=== PATIENT | female | born 1930 | race Caucasian/White ===

== ENCOUNTER 2017-10-18 01:42 | Inpatient (IN) | payer MEDICARE, MEDICAID ==
[2017-10-18] MEDS ORDERED: Morphine INJ* 2 MG/ML 1 ML SYRINGE (TWO MG - NEW SYRINGE VERSION) IV PRN (01:48)
[2017-10-18] MEDS ORDERED: Ondansetron INJ* 2 MG/ML VIAL IV PRN (01:48)
[2017-10-18] MEDS ORDERED: Acetaminophen TAB* 325 MG PO PRN (01:48)
[2017-10-18] MEDS ORDERED: oxyCODONE/Acetamin 5/325 MG* TAB PO PRN (01:48)
[2017-10-18] MEDS ORDERED: NS 0.9% 1000 ML* 1,000 ML IV ONE (02:05)
[2017-10-18] MEDS ORDERED: NS 0.9% 1000 ML* 1,000 ML IV SCH (02:15)
[2017-10-18] MEDS: metroNIDAZOLE IV 500 MG/100ML* 500 MG/100 ML BAG IVPB SCH ×2 (03:49→15:16)
[2017-10-18] MEDS ORDERED: Levofloxacin 500 MG IVPREMIX(* 500 MG/100 ML BAG IVPB SCH (05:00)
--- NOTE | 2017-10-18 05:57 | HP ---
CC: Dr. Gagan Meléndez * HISTORY AND PHYSICAL: DATE OF ADMISSION: 10/18/17 TIME OF MY EVALUATION: 1:30 a.m. PRIMARY CARE PROVIDER: Dr. Gagan Meléndez. Transfer from [facility]. CHIEF COMPLAINT: Known infected right lobe hepatic cyst requesting IR ( Interventional Radiology) drainage [place] [facility] HISTORY OF PRESENT ILLNESS: Please see the transfer note by Dr. Kobe Hassan. In brief, Ms. Cruz is an elderly SNF resident who resides at [facility] who became lethargic, weak, tired and confused and suffered from fevers of unknown origin. The patient was very different than her baseline. The patient was on IV antibiotics at [facility]. The patient ultimately had a CT scan of her abdomen (the machine was originally broken) and that showed an enlarged hepatic cyst worse than previously understood and likely infected and likely the cause of her decline and acute illness. For this reason and for the availability of IR services, the patient was requested to be transferred to [facility] and I accepted. The patient received doses of IV Flagyl in addition to her IV fluoroquinolone before transfer. She was hemodynamically stable. The patient herself does not give any history. She has got severe dementia, however, the patient is more poorly responsive than normal and the staff who know her feel she is very different than her usual, talkative interactive self. PAST MEDICAL HISTORY: 1. Infected hepatic cyst as above. 2. Dementia. 3. Chronic back pain. 4. Diabetes. 5. Hyperlipidemia. 6. Hypothyroidism. 7. Arthritis. 8. Morbid obesity. 9. Anxiety. 10. Behavioral problems. 11. Radiculopathy 12. Recurrent urinary tract infections. TRANSFER MEDICATION LIST: 1. Xanax 0.5 mg by mouth in the morning. 2. Pravachol 80 mg by mouth daily. 3. Neurontin 250 mg by mouth twice daily. 4. Mobic 7.5 mg by mouth daily. 5. Metformin 500 mg by mouth daily. 6. Levothyroxine 25 mcg by mouth daily. 7. Ferrous sulfate elixir daily. 8. Vitamin B12 1000 mcg by mouth daily. 9. Colace 100 mg by mouth daily. 10. Vitamin C 500 mg by mouth daily. 11. Aspirin 81 mg by mouth daily. ALLERGIES: PENNICILLIN - Unknown reaction. FAMILY HISTORY: Reviewed but noncontributory based on the current presentation. SOCIAL HISTORY: Nonsmoker, nondrinker. The patient lives at [facility]. The patient's daughter who is her surrogate decision maker and her name is Jodie Crow. PHYSICAL EXAMINATION ON ADMISSION GENERAL: Elderly woman demented, no history obtained. She is sleeping, arouses and then goes back to sleep. VITAL SIGNS: Temperature afebrile 98 degrees Fahrenheit, blood pressure 130s over 80s, respirations 12 and regular, oxygen saturation 96% on room air. LUNGS: Clear anteriorly. HEART: Regular rate and rhythm. ABDOMEN: Soft, nontender. The right upper quadrant specifically is tender to deep palpation consistent with her hepatic cyst. EXTREMITIES: Significant for right leg brace for her spinal stenosis treatment and stabilization. SKIN: Dry and intact. NEUROLOGIC: Unable to assess secondary to dementia. PSYCH: Unable to assess secondary to dementia. LYMPH: No adenopathy. ADMISSION DATA: Labs pending at [facility]. However labs from 10/17/17 at [facility] include: White blood cell count elevated at 14.97, hemoglobin 9.4, platelets 310, creatinine 1.5, BUN 45, anion gap 15 (elevated), sodium mildly high at 148, potassium 3.9, bicarb 28, calcium 8.9, BUN to creatinine ratio elevated at 30. In terms of her white blood cell count trend, it has been consistently in the mid teens by review, she has a left shift with as high as 92% neutrophils on . She has been progressively more hypernatremic. IMPRESSION: Ms. Cruz is an 87-year-old female with an acute illness secondary to an infected hepatic cyst. The CT image is sent on CD from [facility]. The patient is on IV antibiotics and the plan tentatively is for an IR drainage on 10/18/17. This will be arranged. I will keep the patient NPO for now. We will hold even prophylactic doses of anticoagulants before the procedure. The patient will receive Tylenol as needed for intermittent fevers, run fluids gently considering her emerging hypernatremia. Medication reconciliation will be performed and outpatient medications will be continued as per her usual custom. The patient will be transferred back to [facility] after this acute hospitalization and following the drainage of her hepatic cyst. Surrogate decision maker is patient's daughter. CODE: DNR. Following the procedure, she could have a diabetic diet (will be NPO before the IR procedure) TIME SPENT: Total time taken to admit Ms. Cruz was 70 minutes, greater than half that time was spent going over the admission history and physical examination at the bedside and communicating with the patient's daughter. [id number]/[facility] #: [id number] MIKE
[2017-10-18] MEDS: Heparin VIAL(*) 5000 UNITS/ML VIAL (FIVE THOUSAND) SUBCUT SCH ×3 (06:11→21:09)
[2017-10-18 06:38] LABS: ABS Basophils 0 10^3/ul (0-0.2); ABS Eosinophils 0.1 10^3/ul (0-0.6); ABS Lymphocytes 0.8 10^3/ul (1.0-4.8); ABS Monocytes 1.4 10^3/ul (0-0.8); ABS Neutrophils 14.2 10^3/ul (1.5-7.7); ABS Nucleated RBC 0 10^3/ul; Eosinophil % 0.4 % (0-6); Hematocrit 27 % (35-47); Hemoglobin 8.5 g/dl (12.0-16.0); Lymphocyte % 5.1 % (25-47); Mean Corpuscular HGB Conc 32 g/dl (31-36); Mean Corpuscular Hemoglobin 32 pg (27-31); Mean Corpuscular Volume 101 fL (80-97); Mean Platelet Volume 8 um3 (7.4-10.4); Nucleated Red Blood Cells % 0; Platelet Count 304 10^3/ul (150-450); Red Blood Count 2.65 10^6/ul (4.0-5.4); Red Cell Distribution Width 16 % (10.5-15); White Blood Count 16.5 10^3/ul (3.5-10.8)
[2017-10-18 06:42] LABS: INR 1.29 (0.77-1.02)
[2017-10-18] MEDS: Levothyroxine TAB* 25 MCG TAB PO SCH (06:43)
[2017-10-18 06:52] LABS: EGFR Non-African American 42.6 (>60)
--- NOTE | 2017-10-18 08:53 | RAD ---
Indication: Tachycardia. Infected hepatic cyst. Comparison: October 13, 2017 chest radiograph and October 17, 2017 CT abdomen. Technique: Upright AP 0800 hours Report: Mild prominence of interstitial markings. No focal pulmonary lesion, pleural effusion, pneumothorax. Upper normal heart size. Unremarkable central pulmonary vasculature. Mildly tortuous descending thoracic aorta. Negative for free air beneath the diaphragm. Gallbladder fossa level surgical clips. IMPRESSION: Chronic mild prominence of the interstitial markings. No acute cardiopulmonary process evident.
[2017-10-18] MEDS: ALPRAZolam TAB* 0.5 MG PO SCH (09:00)
[2017-10-18] MEDS: Gabapentin CAP(*) 100 MG PO SCH ×2 (09:00→21:11)
--- NOTE | 2017-10-18 10:36 | PN ---
Hospitalist Progress Note Date of Service: 10/18/17 Talked with Daughter Jodie Crow who confirmed DNR/DNI status and consented for US guided liver aspiration.
--- NOTE | 2017-10-18 10:40 | RAD ---
Indication: Liver mass on CT. Suspected abscess Comparison: Outside institution CT October 17, 2017. Technique: RIGHT upper quadrant ultrasound. Report: Appropriate direction flow documented in the portal and hepatic veins. Post cholecystectomy. Negative for biliary dilatation. Upper normal 7 mm common bile duct for age. 8.3 x 5.6 x 7.4 cm thin-walled complex cyst at the LEFT lateral hepatic segment altering the anterior surface contour of the liver. Reticulated internal architecture with septations and dependent debris. Negative for intrinsic vascularity or marginal hyperemia on Doppler. No intralesional gas artifact evident. Negative for ascites. The pancreas is echogenic consistent with partial fatty replacement. 9.8 cm RIGHT kidney is remarkable for mild cortical thinning. Negative for obstructive uropathy. IMPRESSION: 8.3 cm maximum dimension thin-walled complex cyst at the LEFT lateral hepatic segment without wall wall thickening, marginal hyperemia, or associated intralesional gas to strongly favor abscess. Results discussed with Dr. Streeter 10/18/2017 10:25 AM EST
[2017-10-18] MEDS ORDERED: Acetaminophen SUPP* 650 MG SUPP PR PRN (11:48)
[2017-10-18] MEDS ORDERED: fentaNYL* 50 MCG/ML 2 ML VIAL (100 MCG VIAL) ONE (13:41)
--- NOTE | 2017-10-18 14:33 | RAD ---
INDICATION: Clinical concern for hepatic abscess. COMPARISON: October 18, 2017 ultrasound and October 17, [address] Written informed consent obtained from the patient's daughter by telephone. Timeout performed. PROCEDURE: Sterile prep of epigastric skin superficial to the 8.3 x 5.6 x 7.4 cm loculated complex fluid collection at the LEFT lateral hepatic segment. Soft tissues superficial to the liver anesthetized with 4 mL 1% lidocaine. Under ultrasound guidance a 20-gauge coaxial needle was advanced into the collection and 150 mL of light green fluid was aspirated. Needle removed and sterile dressing applied. Procedure well tolerated without immediate complication. IMPRESSION: Successful ultrasound-guided aspiration of complex cyst at the LEFT lateral hepatic segment. Fluid sent to the lab for analysis. Results of procedure discussed with the patient's daughter by telephone.
[2017-10-18] MEDS ORDERED: Dextrose 50% Syringe 50 ML* 25 GM/50 ML SYRINGE IV PUSH PRN (16:33)
--- NOTE | 2017-10-18 20:06 | PN ---
Hospitalist Progress Note Date of Service: 10/18/17 Seen and examined. FUO but suspected liver abscess based on progression and no other source found on work up at [place]. Coordinated with Dr. Bryan to get Liver US guided aspiration. f/u Cultures. including Bcx drawn when pt spiked fever. Continue levaquin and flagyl for now.
[2017-10-18] MEDS: Insulin LISPRO* 1 UNITS UNIT SUBCUT SCH (21:11)
[2017-10-19] MEDS: metroNIDAZOLE IV 500 MG/100ML* 500 MG/100 ML BAG IVPB SCH ×2 (03:25→15:09)
[2017-10-19] MEDS ORDERED: Levofloxacin 250 MG IVPREMX(*) 250 MG/50 ML BAG IVPB SCH (05:30)
[2017-10-19] MEDS: Heparin VIAL(*) 5000 UNITS/ML VIAL (FIVE THOUSAND) SUBCUT SCH ×3 (05:38→21:16)
[2017-10-19] MEDS: Levothyroxine TAB* 25 MCG TAB PO SCH (05:51)
[2017-10-19 06:00] LABS: INR 1.29 (0.77-1.02)
[2017-10-19 06:03] LABS: ABS Basophils 0.1 10^3/ul (0-0.2); ABS Eosinophils 0.2 10^3/ul (0-0.6); ABS Lymphocytes 1.2 10^3/ul (1.0-4.8); ABS Monocytes 0.9 10^3/ul (0-0.8); ABS Neutrophils 12.3 10^3/ul (1.5-7.7); ABS Nucleated RBC 0 10^3/ul; Eosinophil % 1.2 % (0-6); Hematocrit 28 % (35-47); Hemoglobin 8.9 g/dl (12.0-16.0); Mean Corpuscular HGB Conc 33 g/dl (31-36); Mean Corpuscular Hemoglobin 32 pg (27-31); Mean Corpuscular Volume 99 fL (80-97); Mean Platelet Volume 8 um3 (7.4-10.4); Nucleated Red Blood Cells % 0; Platelet Count 304 10^3/ul (150-450); Red Blood Count 2.77 10^6/ul (4.0-5.4); Red Cell Distribution Width 16 % (10.5-15); White Blood Count 14.6 10^3/ul (3.5-10.8)
[2017-10-19 06:09] LABS: EGFR Non-African American 44.7 (>60)
[2017-10-19] MEDS: Insulin LISPRO* 1 UNITS UNIT SUBCUT SCH ×4 (07:50→21:16)
[2017-10-19] MEDS: Gabapentin CAP(*) 100 MG PO SCH (09:00)
[2017-10-19] MEDS: ALPRAZolam TAB* 0.5 MG PO SCH (09:00)
[2017-10-19] MEDS: D5W 1000 ML BAG* 1,000 ML IV SCH (09:33)
--- NOTE | 2017-10-19 17:39 | PN ---
Subjective Date of Service: 10/19/17 Interval History: Pt more alert and communicative today. but suspicious of physical exam and asked provider to "go away" Ecoli on aspirate. Objective Active Medications: Acetaminophen (Tylenol Tab*) 650 mg PO Q4H PRN PRN Reason: FEVER/PAIN Acetaminophen (Tylenol Supp*) 650 mg IN Q6H PRN PRN Reason: FEVER Dextrose (D50w Syringe 50 Ml*) 12.5 gm IV PUSH .FOR FS < 60 - SS PRN PRN Reason: FS < 60 Heparin Sodium (Porcine) (Heparin Vial(*)) 5,000 units SUBCUT Q8HR [facility] Last Admin: 10/19/17 14:39 Dose: 5,000 units Metronidazole/Sodium Chloride (Flagyl 500 Mg Ivpb*) 500 mg in 100 mls @ 100 mls /hr IVPB Q12H [facility] Last Admin: 10/19/17 15:09 Dose: 100 mls/hr Levofloxacin/Dextrose (Levaquin 250 Mg Ivpremx(*)) 250 mg in 50 mls @ 50 mls/ hr IVPB Q24H [facility] Last Admin: 10/19/17 05:34 Dose: 50 mls/hr Dextrose (D5w 1000 Ml Bag*) 1,000 mls @ 50 mls/hr IV PER RATE [facility] Last Admin: 10/19/17 09:33 Dose: 50 mls/hr Insulin Human Lispro (Humalog*) 0 units SUBCUT ACHS [facility] PRN Reason: Protocol Last Admin: 10/19/17 17:20 Dose: Not Given Levothyroxine Sodium (Synthroid Tab*) 25 mcg PO DAILY@0600 [facility] Last Admin: 10/19/17 05:51 Dose: 25 mcg Morphine Sulfate (Morphine Inj (Syringe)*) 2 mg IV Q4H PRN PRN Reason: PAIN Last Admin: 10/18/17 04:29 Dose: 2 mg Ondansetron HCl (Zofran Inj*) 4 mg IV Q4H PRN PRN Reason: NAUSEA/VOMITING Oxycodone/Acetaminophen (Percocet 5/325 Tab*) 1 tab PO Q4H PRN PRN Reason: Pain Vital Signs - 8 hr 10/19/17 10/19/17 10/19/17 11:38 15:38 16:26 Temperature 97.4 F 98.7 F Pulse Rate 61 70 Respiratory 16 18 Rate Blood Pressure 119/66 121/40 (mmHg) O2 Sat by Pulse 80 97 Oximetry Oxygen Devices in Use Now: Nasal Cannula Appearance: NAD, more alert Eyes: No Scleral Icterus, PERRLA Ears/Nose/Mouth/Throat: NL Teeth, Lips, Gums, Mucous Membranes Moist Respiratory: Symmetrical Chest Expansion and Respiratory Effort, Clear to Auscultation Abdominal: NL Sounds; No Tenderness; No Distention, No Hepatosplenomegaly Extremities: No Edema, - - in right knee immobilizer. Neurological: - - oriented to name but not year or place, following commands, ZAMORA Result Diagrams: 10/19/17 05:47 10/19/17 05:47 Additional Lab and Data: Laboratory Results - last 24 hr 10/18/17 10/19/17 10/19/17 21:00 05:47 05:47 WBC 14.6 H RBC 2.77 L Hgb 8.9 L Hct 28 L MCV 99 H MCH 32 H MCHC 33 RDW 16 H Plt Count 304 MPV 8 Neut % (Auto) 84.1 H Lymph % (Auto) 8.0 L [place] % (Auto) 6.2 Eos % (Auto) 1.2 Baso % (Auto) 0.5 Absolute Neuts (auto) 12.3 H Absolute Lymphs (auto) 1.2 Absolute Monos (auto) 0.9 H Absolute Eos (auto) 0.2 Absolute Basos (auto) 0.1 Absolute Nucleated RBC 0 Nucleated RBC % 0 INR (Anticoag Therapy) 1.29 H Sodium Potassium Chloride Carbon Dioxide Anion Gap BUN Creatinine Est GFR ( Amer) Est GFR (Non-Af Amer) BUN/Creatinine Ratio Glucose POC Glucose (mg/dL) 118 H Lactic Acid Calcium 10/19/17 10/19/17 10/19/17 05:47 05:47 07:26 WBC RBC Hgb Hct MCV MCH MCHC RDW Plt Count MPV Neut % (Auto) Lymph % (Auto) [place] % (Auto) Eos % (Auto) Baso % (Auto) Absolute Neuts (auto) Absolute Lymphs (auto) Absolute Monos (auto) Absolute Eos (auto) Absolute Basos (auto) Absolute Nucleated RBC Nucleated RBC % INR (Anticoag Therapy) Sodium 146 H Potassium 3.5 Chloride 114 H Carbon Dioxide 24 Anion Gap 8 BUN 50 H Creatinine 1.15 H Est GFR ( Amer) 57.5 Est GFR (Non-Af Amer) 44.7 BUN/Creatinine Ratio 43.5 H Glucose 110 H POC Glucose (mg/dL) 140 H Lactic Acid 0.6 Calcium 8.4 L 10/19/17 10/19/17 11:55 16:39 WBC RBC Hgb Hct MCV MCH MCHC RDW Plt Count MPV Neut % (Auto) Lymph % (Auto) [place] % (Auto) Eos % (Auto) Baso % (Auto) Absolute Neuts (auto) Absolute Lymphs (auto) Absolute Monos (auto) Absolute Eos (auto) Absolute Basos (auto) Absolute Nucleated RBC Nucleated RBC % INR (Anticoag Therapy) Sodium Potassium Chloride Carbon Dioxide Anion Gap BUN Creatinine Est GFR ( Amer) Est GFR (Non-Af Amer) BUN/Creatinine Ratio Glucose POC Glucose (mg/dL) 120 H 113 H Lactic Acid Calcium Microbiology and Other Data: Microbiology 10/18/17 14:00 Body Fluid - Hepatic Gram Stain - Final 10/18/17 14:00 Body Fluid - Hepatic Body Fluid Culture - Preliminary Escherichia Coli 10/18/17 15:36 Blood Venous Aerobic Blood Culture - Preliminary No Growth Day 1 10/18/17 15:36 Blood Venous Anaerobic Blood Culture - Preliminary No Growth Day 1 10/18/17 15:36 Blood Venous Aerobic Blood Culture - Preliminary No Growth Day 1 10/18/17 15:36 Blood Venous Anaerobic Blood Culture - Preliminary No Growth Day 1 10/18/17 02:58 Nasal Nasal Screen MRSA (PCR)(YOVANA) - Final Mrsa Negative Assess/Plan/Problems-Billing Assessment: 87 year old female (resident of [facility], nonambulatory) PMH dementia, insulin resistance, HLD, OA presenting with FUO and AMS found to have an enlarging liver cyst suspicious for abscess. s/p IR guided aspiration growing Ecoli. Improving mental status. CFTX. - Patient Problems (1) Hepatic abscess Current Visit: Yes Status: Acute Code(s): K75.0 - ABSCESS OF LIVER SNOMED Code(s): 56937846 Comment: s/p US guided biopsy of liver abscess. Growing Ecoli. Fevers, leukocytosis(slowly improving), AMS. Appreciate ID recs. Continue ceftriaxone and flagyl. s/p levaquin. f/u BCxs. (2) Hypernatremia Current Visit: Yes Status: Acute Code(s): E87.0 - HYPEROSMOLALITY AND HYPERNATREMIA SNOMED Code(s): 93675823 Comment: Na 146. started D5W, BMP daily. (3) Insulin resistance Current Visit: Yes Status: Acute Code(s): E88.81 - METABOLIC SYNDROME SNOMED Code(s): 89727637 Comment: POCT, SSI qac qhs Status and Disposition: medicine inpatient. Attending: Dex Streeter
[2017-10-20] MEDS: metroNIDAZOLE IV 500 MG/100ML* 500 MG/100 ML BAG IVPB SCH (03:30)
[2017-10-20] MEDS: Heparin VIAL(*) 5000 UNITS/ML VIAL (FIVE THOUSAND) SUBCUT SCH ×3 (05:33→20:52)
[2017-10-20] MEDS: Levothyroxine TAB* 25 MCG TAB PO SCH (05:36)
[2017-10-20] MEDS ORDERED: cefTRIAXone(*) 1 GM in NS 0.9% 50 ML* 50 ML IVPB SCH (06:00)
[2017-10-20 06:55] LABS: ABS Basophils 0 10^3/ul (0-0.2); ABS Eosinophils 0.2 10^3/ul (0-0.6); ABS Lymphocytes 1.3 10^3/ul (1.0-4.8); ABS Monocytes 0.7 10^3/ul (0-0.8); ABS Neutrophils 9.9 10^3/ul (1.5-7.7); ABS Nucleated RBC 0 10^3/ul; Eosinophil % 1.8 % (0-6); Hematocrit 29 % (35-47); Hemoglobin 9.5 g/dl (12.0-16.0); Lymphocyte % 10.7 % (25-47); Mean Corpuscular HGB Conc 33 g/dl (31-36); Mean Corpuscular Hemoglobin 33 pg (27-31); Mean Corpuscular Volume 100 fL (80-97); Mean Platelet Volume 8 um3 (7.4-10.4); Nucleated Red Blood Cells % 0; Platelet Count 335 10^3/ul (150-450); Red Blood Count 2.89 10^6/ul (4.0-5.4); Red Cell Distribution Width 16 % (10.5-15); White Blood Count 12.2 10^3/ul (3.5-10.8)
[2017-10-20 07:13] LABS: EGFR Non-African American 57.2 (>60)
[2017-10-20] MEDS: Insulin LISPRO* 1 UNITS UNIT SUBCUT SCH ×4 (08:38→20:51)
--- NOTE | 2017-10-20 09:01 | RAD ---
CLINICAL HISTORY: Follow-up hepatic cyst aspiration, liver abscess COMPARISON: Ultrasound dated October 18, 2017, CT dated October 17, 2017 TECHNIQUE: Multiple contiguous axial CT scans were obtained of the abdomen, without intravenous contrast enhancement. Coronal and sagittal multiplanar reformations are submitted for review. Oral contrast was not administered. FINDINGS: The study is limited by the lack of intravenous contrast. This limits evaluation of the solid organs and vasculature. LUNG BASES: There are small bilateral pleural effusions. LIVER: Again noted are multiple low-attenuation hepatic parenchymal lesions most consistent with simple cysts. Again noted is an intermediate attenuation fluid collection within the left lobe of liver. This measures 4.7 x 6 x 6.6 cm in size. Compared to the previous CT examination, this has decreased from 7 x 6.5 x 7.5 cm in size. Compared to the previous ultrasound examination after aspiration, this measured 7.8 x 4.2 x 6.1 cm in size. BILE DUCTS: There is no intrahepatic or extrahepatic biliary dilatation. GALLBLADDER: The gallbladder is not visualized. Surgical clips are noted in the gallbladder fossa. PANCREAS: The pancreas is normal, without mass or ductal dilatation. SPLEEN: Normal in size and appearance. UPPER GI TRACT: Evaluation of the gastrointestinal tract is limited by incomplete gastric distention. The upper GI tract is unremarkable. SMALL BOWEL AND MESENTERY: The small bowel is normal in contour, course, and caliber. There is no obstruction or dilatation. COLON: The colon is normal in contour, course, caliber. There is no pericolonic inflammatory change. ADRENALS: Normal bilaterally. KIDNEYS: The kidneys are normal in shape, size, contour, and axis. There is no hydronephrosis or nephrolithiasis. AORTA: There is calcific atherosclerotic disease of the abdominal aorta and its branches, without aneurysmal dilatation IVC: Unremarkable LYMPH NODES: There is no lymphadenopathy by size criteria. ABDOMINAL WALL: There is no evidence for abdominal wall hernia. BONES AND SOFT TISSUES: There are mild diffuse degenerative changes. OTHER: None IMPRESSION: 1. AGAIN NOTED IS A COMPLEX FLUID COLLECTION OF LEFT LOBE OF LIVER MEASURING UP TO 6.6 CM IN SIZE ON THE CURRENT EXAMINATION. THIS IS DECREASED IN SIZE FROM THE PREVIOUS CT EXAMINATION. THIS IS SIMILAR IN SIZE TO THE PREVIOUS POST ASPIRATION ULTRASOUND, THOUGH DIRECT COMPARISON IS LIMITED DUE TO DIFFERENCES IN TECHNIQUE. 2. SMALL BILATERAL PLEURAL EFFUSIONS. 3. ATHEROSCLEROSIS.
[2017-10-20] MEDS: D5W 1000 ML BAG* 1,000 ML IV SCH (10:10)
[2017-10-20] MEDS: Meropenem 1 GM PREMIX(*) 1 GM/50 ML BAG IV SCH ×2 (14:14→20:50)
--- NOTE | 2017-10-20 17:38 | PN ---
Subjective Date of Service: 10/20/17 Interval History: repeat CT scan with still significant abscess collection 6.6x4.7x6. Ecoli speciated to ESBL. Cftx changed to meropenem. Pt talking but and following commands but very limited historian. Objective Active Medications: Acetaminophen (Tylenol Tab*) 650 mg PO Q4H PRN PRN Reason: FEVER/PAIN Acetaminophen (Tylenol Supp*) 650 mg ND Q6H PRN PRN Reason: FEVER Dextrose (D50w Syringe 50 Ml*) 12.5 gm IV PUSH .FOR FS < 60 - SS PRN PRN Reason: FS < 60 Heparin Sodium (Porcine) (Heparin Vial(*)) 5,000 units SUBCUT Q8HR [facility] Stop: 10/20/17 23:59 Last Admin: 10/20/17 13:47 Dose: 5,000 units Dextrose (D5w 1000 Ml Bag*) 1,000 mls @ 50 mls/hr IV PER RATE [facility] Last Admin: 10/20/17 10:10 Dose: 50 mls/hr Meropenem (Merrem 1 Gm Premix(*)) 1 gm in 50 mls @ 100 mls/hr IV Q8H [facility] Last Admin: 10/20/17 14:14 Dose: 100 mls/hr Insulin Human Lispro (Humalog*) 0 units SUBCUT ACHS [facility] PRN Reason: Protocol Last Admin: 10/20/17 17:19 Dose: Not Given Levothyroxine Sodium (Synthroid Tab*) 25 mcg PO DAILY@0600 [facility] Last Admin: 10/20/17 05:36 Dose: 25 mcg Morphine Sulfate (Morphine Inj (Syringe)*) 2 mg IV Q4H PRN PRN Reason: PAIN Last Admin: 10/18/17 04:29 Dose: 2 mg Ondansetron HCl (Zofran Inj*) 4 mg IV Q4H PRN PRN Reason: NAUSEA/VOMITING Oxycodone/Acetaminophen (Percocet 5/325 Tab*) 1 tab PO Q4H PRN PRN Reason: Pain Vital Signs - 8 hr 10/20/17 10/20/17 11:16 15:26 Temperature 98.3 F 97.6 F Pulse Rate 65 66 Respiratory 16 19 Rate Blood Pressure 133/56 124/46 (mmHg) O2 Sat by Pulse 98 100 Oximetry Oxygen Devices in Use Now: Nasal Cannula Appearance: NAD. Eyes: - - pinpoint pupils. Ears/Nose/Mouth/Throat: NL Teeth, Lips, Gums Neck: NL Appearance and Movements; NL JVP Respiratory: Symmetrical Chest Expansion and Respiratory Effort, Clear to Auscultation Cardiovascular: NL Sounds; No Murmurs; No JVD, RRR Abdominal: NL Sounds; No Tenderness; No Distention, No Hepatosplenomegaly Extremities: No Edema, - - immobilizer on right leg Skin: No Rash or Ulcers Neurological: - - following commands. yes no answers but not much else. Nutrition: Taking PO's Result Diagrams: 10/20/17 06:16 10/20/17 06:16 Additional Lab and Data: Laboratory Results - last 24 hr 10/19/17 10/20/17 10/20/17 21:12 06:16 06:16 WBC 12.2 H RBC 2.89 L Hgb 9.5 L Hct 29 L MCV 100 H MCH 33 H MCHC 33 RDW 16 H Plt Count 335 MPV 8 Neut % (Auto) 81.4 Lymph % (Auto) 10.7 L [place] % (Auto) 5.8 Eos % (Auto) 1.8 Baso % (Auto) 0.3 Absolute Neuts (auto) 9.9 H Absolute Lymphs (auto) 1.3 Absolute Monos (auto) 0.7 Absolute Eos (auto) 0.2 Absolute Basos (auto) 0 Absolute Nucleated RBC 0 Nucleated RBC % 0 Sodium 145 Potassium 3.2 L Chloride 111 Carbon Dioxide 27 Anion Gap 7 BUN 41 H Creatinine 0.93 Est GFR ( Amer) 73.5 Est GFR (Non-Af Amer) 57.2 BUN/Creatinine Ratio 44.1 H Glucose 131 H POC Glucose (mg/dL) 141 H Calcium 8.6 10/20/17 10/20/17 10/20/17 07:20 11:55 16:31 WBC RBC Hgb Hct MCV MCH MCHC RDW Plt Count MPV Neut % (Auto) Lymph % (Auto) [place] % (Auto) Eos % (Auto) Baso % (Auto) Absolute Neuts (auto) Absolute Lymphs (auto) Absolute Monos (auto) Absolute Eos (auto) Absolute Basos (auto) Absolute Nucleated RBC Nucleated RBC % Sodium Potassium Chloride Carbon Dioxide Anion Gap BUN Creatinine Est GFR ( Amer) Est GFR (Non-Af Amer) BUN/Creatinine Ratio Glucose POC Glucose (mg/dL) 139 H 125 H 100 Calcium Microbiology and Other Data: Microbiology 10/18/17 15:36 Blood Venous Aerobic Blood Culture - Preliminary No Growth Day 2 10/18/17 15:36 Blood Venous Anaerobic Blood Culture - Preliminary No Growth Day 2 10/18/17 15:36 Blood Venous Aerobic Blood Culture - Preliminary No Growth Day 2 10/18/17 15:36 Blood Venous Anaerobic Blood Culture - Preliminary No Growth Day 2 10/18/17 14:00 Body Fluid - Hepatic Gram Stain - Final 10/18/17 14:00 Body Fluid - Hepatic Body Fluid Culture - Preliminary Esbl Escherichia Coli 10/18/17 02:58 Nasal Nasal Screen MRSA (PCR)(YOVANA) - Final Mrsa Negative Assess/Plan/Problems-Billing Assessment: 87 year old female (resident of [facility], nonambulatory) PMH dementia, insulin resistance, HLD, OA presenting with FUO and AMS found to have an enlarging liver cyst suspicious for abscess. s/p IR guided aspiration growing ESBL Ecoli. Improving mental status. Meropenem. Planned IR drain 10/21. - Patient Problems (1) Hepatic abscess Current Visit: Yes Status: Acute Code(s): K75.0 - ABSCESS OF LIVER SNOMED Code(s): 67423000 Comment: s/p US guided aspiration of liver abscess. Growing ESBL Ecoli. Fevers, leukocytosis(slowly improving), AMS. Appreciate ID recs. On Meropenem. s/p levaquin, cftx, flagyl. f/u BCxs NGTD. Planned US guided drainage 10/21 (2) Hypernatremia Current Visit: Yes Status: Acute Code(s): E87.0 - HYPEROSMOLALITY AND HYPERNATREMIA SNOMED Code(s): 34271914 Comment: Na 146 -> 145 continue D5W, BMP daily. (3) Insulin resistance Current Visit: Yes Status: Acute Code(s): E88.81 - METABOLIC SYNDROME SNOMED Code(s): 34026930 Comment: POCT, SSI qac qhs Status and Disposition: medicine inpatient. Needing further drainage Attending: Dex Streeter
[2017-10-21 05:11] LABS: ABS Basophils 0 10^3/ul (0-0.2); ABS Eosinophils 0.2 10^3/ul (0-0.6); ABS Lymphocytes 1.2 10^3/ul (1.0-4.8); ABS Monocytes 0.5 10^3/ul (0-0.8); ABS Nucleated RBC 0.02 10^3/ul; Eosinophil % 1.5 % (0-6); Hematocrit 30 % (35-47); Hemoglobin 9.9 g/dl (12.0-16.0); Lymphocyte % 9.9 % (25-47); Mean Corpuscular HGB Conc 33 g/dl (31-36); Mean Corpuscular Hemoglobin 32 pg (27-31); Mean Corpuscular Volume 100 fL (80-97); Mean Platelet Volume 8 um3 (7.4-10.4); Nucleated Red Blood Cells % 0.1; Platelet Count 366 10^3/ul (150-450); Red Blood Count 3.05 10^6/ul (4.0-5.4); Red Cell Distribution Width 16 % (10.5-15); White Blood Count 11.9 10^3/ul (3.5-10.8)
[2017-10-21 05:15] LABS: EGFR Non-African American 60.1 (>60)
[2017-10-21] MEDS: Meropenem 1 GM PREMIX(*) 1 GM/50 ML BAG IV SCH ×3 (05:34→21:36)
[2017-10-21] MEDS: Levothyroxine TAB* 25 MCG TAB PO SCH (05:36)
[2017-10-21] MEDS: Insulin LISPRO* 1 UNITS UNIT SUBCUT SCH ×4 (08:32→21:36)
[2017-10-21] MEDS: D5W 1000 ML BAG* 1,000 ML IV SCH (11:24)
[2017-10-21] MEDS ORDERED: fentaNYL* 50 MCG/ML 2 ML VIAL (100 MCG VIAL) ONE (12:24)
--- NOTE | 2017-10-21 15:59 | RAD ---
Indication: Left lobe liver abscess. Real-time sonography of the left lobe liver lesion was localized. Utilizing a 18-gauge Seldinger technique the cystic structure was localized with ultrasound guidance and punctured. Free flow of fluid was obtained. Using a series of guidewires and dilators an 8-Tunisian catheter was then placed within the fluid collection. Patient tolerated procedure well. IMPRESSION: Successful placement of a 8-Tunisian catheter into the minimally complex fluid collection in the left lobe of the liver.
--- NOTE | 2017-10-21 20:07 | PN ---
Subjective Date of Service: 10/21/17 Interval History: Pt verbal but poor historian. Taken for US guided drainage with IR. Reported 125 cc + 20 out. Objective Active Medications: Acetaminophen (Tylenol Tab*) 650 mg PO Q4H PRN PRN Reason: FEVER/PAIN Acetaminophen (Tylenol Supp*) 650 mg [place] Q6H PRN PRN Reason: FEVER Dextrose (D50w Syringe 50 Ml*) 12.5 gm IV PUSH .FOR FS < 60 - SS PRN PRN Reason: FS < 60 Heparin Sodium (Porcine) (Heparin Flush Picc/Ml/Cvc(*)) 1 - 3 ml FLUSH 0600, 1800 [facility] PRN Reason: Protocol Last Admin: 10/21/17 17:15 Dose: Not Given Dextrose (D5w 1000 Ml Bag*) 1,000 mls @ 50 mls/hr IV PER RATE [facility] Last Admin: 10/21/17 11:24 Dose: 50 mls/hr Meropenem (Merrem 1 Gm Premix(*)) 1 gm in 50 mls @ 100 mls/hr IV Q8H [facility] Last Admin: 10/21/17 14:42 Dose: 100 mls/hr Insulin Human Lispro (Humalog*) 0 units SUBCUT ACHS [facility] PRN Reason: Protocol Last Admin: 10/21/17 17:14 Dose: Not Given Levothyroxine Sodium (Synthroid Tab*) 25 mcg PO DAILY@0600 [facility] Last Admin: 10/21/17 05:36 Dose: Not Given Morphine Sulfate (Morphine Inj (Syringe)*) 2 mg IV Q4H PRN PRN Reason: PAIN Last Admin: 10/18/17 04:29 Dose: 2 mg Ondansetron HCl (Zofran Inj*) 4 mg IV Q4H PRN PRN Reason: NAUSEA/VOMITING Oxycodone/Acetaminophen (Percocet 5/325 Tab*) 1 tab PO Q4H PRN PRN Reason: Pain Vital Signs - 8 hr 10/21/17 10/21/17 10/21/17 14:25 14:41 15:40 Temperature 97.9 F Pulse Rate 60 78 Respiratory 14 18 Rate Blood Pressure 104/60 135/63 (mmHg) O2 Sat by Pulse 100 100 Oximetry 10/21/17 15:54 Temperature Pulse Rate Respiratory Rate Blood Pressure (mmHg) O2 Sat by Pulse 92 Oximetry Oxygen Devices in Use Now: Nasal Cannula Appearance: NAD. Neck: NL Appearance and Movements; NL JVP, Trachea Midline Respiratory: Symmetrical Chest Expansion and Respiratory Effort, Clear to Auscultation Cardiovascular: NL Sounds; No Murmurs; No JVD, RRR Abdominal: NL Sounds; No Tenderness; No Distention, No Hepatosplenomegaly Extremities: No Edema, No Clubbing, Cyanosis Skin: No Rash or Ulcers Neurological: - - oriented to name only. ZAMORA, following commands Result Diagrams: 10/21/17 04:24 10/21/17 04:24 Additional Lab and Data: Laboratory Results - last 24 hr 10/20/17 10/21/17 10/21/17 20:40 04:24 04:24 WBC 11.9 H RBC 3.05 L Hgb 9.9 L Hct 30 L MCV 100 H MCH 32 H MCHC 33 RDW 16 H Plt Count 366 MPV 8 Neut % (Auto) 84.3 H Lymph % (Auto) 9.9 L [place] % (Auto) 4.0 Eos % (Auto) 1.5 Baso % (Auto) 0.3 Absolute Neuts (auto) 10.0 H Absolute Lymphs (auto) 1.2 Absolute Monos (auto) 0.5 Absolute Eos (auto) 0.2 Absolute Basos (auto) 0 Absolute Nucleated RBC 0.02 Nucleated RBC % 0.1 Sodium 143 Potassium 3.2 L Chloride 111 Carbon Dioxide 24 Anion Gap 8 BUN 35 H Creatinine 0.89 Est GFR ( Amer) 77.3 Est GFR (Non-Af Amer) 60.1 BUN/Creatinine Ratio 39.3 H Glucose 134 H POC Glucose (mg/dL) 164 H Calcium 8.1 L 10/21/17 10/21/17 10/21/17 07:48 12:07 16:54 WBC RBC Hgb Hct MCV MCH MCHC RDW Plt Count MPV Neut % (Auto) Lymph % (Auto) [place] % (Auto) Eos % (Auto) Baso % (Auto) Absolute Neuts (auto) Absolute Lymphs (auto) Absolute Monos (auto) Absolute Eos (auto) Absolute Basos (auto) Absolute Nucleated RBC Nucleated RBC % Sodium Potassium Chloride Carbon Dioxide Anion Gap BUN Creatinine Est GFR ( Amer) Est GFR (Non-Af Amer) BUN/Creatinine Ratio Glucose POC Glucose (mg/dL) 112 H 134 H 99 Calcium Microbiology and Other Data: Microbiology 10/18/17 15:36 Blood Venous Aerobic Blood Culture - Preliminary No Growth Day 3 10/18/17 15:36 Blood Venous Anaerobic Blood Culture - Preliminary No Growth Day 3 10/18/17 15:36 Blood Venous Aerobic Blood Culture - Preliminary No Growth Day 3 10/18/17 15:36 Blood Venous Anaerobic Blood Culture - Preliminary No Growth Day 3 10/18/17 14:00 Body Fluid - Hepatic Gram Stain - Final 10/18/17 14:00 Body Fluid - Hepatic Body Fluid Culture - Preliminary Esbl Escherichia Coli 10/18/17 02:58 Nasal Nasal Screen MRSA (PCR)(YOVANA) - Final Mrsa Negative Assess/Plan/Problems-Billing Assessment: 87 year old female (resident of [facility], non-ambulatory) PMH dementia, insulin resistance, HLD, OA presenting with FUO and AMS found to have an enlarging liver cyst suspicious for abscess. s/p IR guided aspiration growing ESBL Ecoli. Improving mental status. Meropenem. s/p IR drain 10/21. - Patient Problems (1) Hepatic abscess Current Visit: Yes Status: Acute Code(s): K75.0 - ABSCESS OF LIVER SNOMED Code(s): 90834393 Comment: s/p US guided aspiration of liver abscess. Growing ESBL Ecoli. On admission: Fevers, leukocytosis, AMS (improved). follow up ID recs. Currently On Meropenem. s/p levaquin, cftx, flagyl. f/u BCxs NGTD. s/p US guided drainage 10/21 (2) Hypernatremia Current Visit: Yes Status: Acute Code(s): E87.0 - HYPEROSMOLALITY AND HYPERNATREMIA SNOMED Code(s): 75450189 Comment: Na 146 -> 145 -> 143. Improved. continue gentle D5W, BMP daily. (3) Insulin resistance Current Visit: Yes Status: Acute Code(s): E88.81 - METABOLIC SYNDROME SNOMED Code(s): 67905916 Comment: POCT, SSI qac qhs Status and Disposition: medicine inpatient. Attending: Dex Streeter
[2017-10-22] MEDS: Meropenem 1 GM PREMIX(*) 1 GM/50 ML BAG IV SCH ×3 (05:47→21:33)
[2017-10-22] MEDS: Levothyroxine TAB* 25 MCG TAB PO SCH ×2 (05:49→05:55)
[2017-10-22 06:35] LABS: Hematocrit 28 % (35-47); Hemoglobin 9.4 g/dl (12.0-16.0); Mean Corpuscular HGB Conc 33 g/dl (31-36); Mean Corpuscular Hemoglobin 32 pg (27-31); Mean Corpuscular Volume 97 fL (80-97); Mean Platelet Volume 8 um3 (7.4-10.4); Platelet Count 342 10^3/ul (150-450); Red Blood Count 2.92 10^6/ul (4.0-5.4); Red Cell Distribution Width 15 % (10.5-15); White Blood Count 13.2 10^3/ul (3.5-10.8)
[2017-10-22 06:49] LABS: EGFR Non-African American 60.1 (>60)
[2017-10-22 07:51] LABS: ABS Basophils 0.2 10^3/ul (0-0.2); ABS Eosinophils 0.2 10^3/ul (0-0.6); ABS Lymphocytes 1.2 10^3/ul (1.0-4.8); ABS Monocytes 0.6 10^3/ul (0-0.8); ABS Neutrophils 11.1 10^3/ul (1.5-7.7); ABS Nucleated RBC 0 10^3/ul; Eosinophil % 1.2 % (0-6); Lymphocyte % 8.8 % (25-47); Nucleated Red Blood Cells % 0
[2017-10-22] MEDS: Insulin LISPRO* 1 UNITS UNIT SUBCUT SCH ×4 (08:25→21:16)
[2017-10-22] MEDS ORDERED: Potassium Chloride IV* 60 MEQ in NS 0.9% 500 ML* 500 ML IVPB ONE (12:00)
[2017-10-22] MEDS ORDERED: KCL 20 MEQ/100 ML IVPREMIX* 20 MEQ/100 ML BAG IV SCH (12:00)
--- NOTE | 2017-10-22 12:29 | PN ---
Subjective Date of Service: 10/22/17 Interval History: Verbal but poor historian, Denies any pain, Open eyes and said good morning when spoken too, but would not answer further questions. ROS was not completed d/t patients lack of response. Family History: Unchanged from Admission Social History: Unchanged from Admission Past Medical History: Unchanged from Admission Objective Active Medications: Acetaminophen (Tylenol Tab*) 650 mg PO Q4H PRN PRN Reason: FEVER/PAIN Acetaminophen (Tylenol Supp*) 650 mg [place] Q6H PRN PRN Reason: FEVER Dextrose (D50w Syringe 50 Ml*) 12.5 gm IV PUSH .FOR FS < 60 - SS PRN PRN Reason: FS < 60 Heparin Sodium (Porcine) (Heparin Flush Picc/Ml/Cvc(*)) 1 - 3 ml FLUSH 0600, 1800 [facility] PRN Reason: Protocol Last Admin: 10/22/17 05:48 Dose: Not Given Dextrose (D5w 1000 Ml Bag*) 1,000 mls @ 50 mls/hr IV PER RATE [facility] Last Admin: 10/21/17 11:24 Dose: 50 mls/hr Meropenem (Merrem 1 Gm Premix(*)) 1 gm in 50 mls @ 100 mls/hr IV Q8H [facility] Last Admin: 10/22/17 12:28 Dose: 100 mls/hr Potassium Chloride 60 meq/ (Sodium Chloride) 530 mls @ 88.333 mls/hr IVPB ONCE ONE Stop: 10/22/17 17:59 Insulin Human Lispro (Humalog*) 0 units SUBCUT ACHS [facility] PRN Reason: Protocol Last Admin: 10/22/17 12:00 Dose: Not Given Levothyroxine Sodium (Synthroid Tab*) 25 mcg PO DAILY@0600 [facility] Last Admin: 10/22/17 05:55 Dose: Not Given Morphine Sulfate (Morphine Inj (Syringe)*) 2 mg IV Q4H PRN PRN Reason: PAIN Last Admin: 10/18/17 04:29 Dose: 2 mg Ondansetron HCl (Zofran Inj*) 4 mg IV Q4H PRN PRN Reason: NAUSEA/VOMITING Oxycodone/Acetaminophen (Percocet 5/325 Tab*) 1 tab PO Q4H PRN PRN Reason: Pain Vital Signs - 8 hr 10/22/17 10/22/17 10/22/17 07:29 08:45 11:26 Temperature 98.9 F 98.3 F Pulse Rate 69 70 Respiratory 16 16 16 Rate Blood Pressure 134/48 125/42 (mmHg) O2 Sat by Pulse 98 97 Oximetry Oxygen Devices in Use Now: Nasal Cannula Appearance: alert to verbal, Appears comfortable Eyes: No Scleral Icterus, PERRLA Ears/Nose/Mouth/Throat: Clear Oropharnyx, Mucous Membranes Moist Neck: NL Appearance and Movements; NL JVP, Trachea Midline Respiratory: Symmetrical Chest Expansion and Respiratory Effort, Clear to Auscultation, - - diminished at the bases bilat Cardiovascular: NL Sounds; No Murmurs; No JVD, RRR, No Edema Abdominal: NL Sounds; No Tenderness; No Distention Extremities: No Edema, No Clubbing, Cyanosis Skin: No Rash or Ulcers, - - drain noted to mid abd, small amt of serosang. drainage noted to the drainage bag. Neurological: - - alert to verbal Nutrition: - - minimal PO intake Result Diagrams: 10/22/17 06:19 10/22/17 06:19 Additional Lab and Data: Laboratory Results - last 24 hr 10/20/17 10/21/17 10/21/17 20:40 04:24 04:24 WBC 11.9 H RBC 3.05 L Hgb 9.9 L Hct 30 L MCV 100 H MCH 32 H MCHC 33 RDW 16 H Plt Count 366 MPV 8 Neut % (Auto) 84.3 H Lymph % (Auto) 9.9 L [place] % (Auto) 4.0 Eos % (Auto) 1.5 Baso % (Auto) 0.3 Absolute Neuts (auto) 10.0 H Absolute Lymphs (auto) 1.2 Absolute Monos (auto) 0.5 Absolute Eos (auto) 0.2 Absolute Basos (auto) 0 Absolute Nucleated RBC 0.02 Nucleated RBC % 0.1 Sodium 143 Potassium 3.2 L Chloride 111 Carbon Dioxide 24 Anion Gap 8 BUN 35 H Creatinine 0.89 Est GFR ( Amer) 77.3 Est GFR (Non-Af Amer) 60.1 BUN/Creatinine Ratio 39.3 H Glucose 134 H POC Glucose (mg/dL) 164 H Calcium 8.1 L 10/21/17 10/21/17 10/21/17 07:48 12:07 16:54 WBC RBC Hgb Hct MCV MCH MCHC RDW Plt Count MPV Neut % (Auto) Lymph % (Auto) [place] % (Auto) Eos % (Auto) Baso % (Auto) Absolute Neuts (auto) Absolute Lymphs (auto) Absolute Monos (auto) Absolute Eos (auto) Absolute Basos (auto) Absolute Nucleated RBC Nucleated RBC % Sodium Potassium Chloride Carbon Dioxide Anion Gap BUN Creatinine Est GFR ( Amer) Est GFR (Non-Af Amer) BUN/Creatinine Ratio Glucose POC Glucose (mg/dL) 112 H 134 H 99 Calcium Microbiology and Other Data: Microbiology 10/18/17 15:36 Blood Venous Aerobic Blood Culture - Preliminary No Growth Day 3 10/18/17 15:36 Blood Venous Anaerobic Blood Culture - Preliminary No Growth Day 3 10/18/17 15:36 Blood Venous Aerobic Blood Culture - Preliminary No Growth Day 3 10/18/17 15:36 Blood Venous Anaerobic Blood Culture - Preliminary No Growth Day 3 10/18/17 14:00 Body Fluid - Hepatic Gram Stain - Final 10/18/17 14:00 Body Fluid - Hepatic Body Fluid Culture - Preliminary Esbl Escherichia Coli 10/18/17 02:58 Nasal Nasal Screen MRSA (PCR)(YOVANA) - Final Mrsa Negative Assess/Plan/Problems-Billing Assessment: 87 year old female (resident of [facility], non-ambulatory) PMH dementia, insulin resistance, HLD, OA presenting with FUO and AMS found to have an enlarging liver cyst suspicious for abscess. s/p IR guided aspiration growing ESBL Ecoli. Improving mental status. Meropenem. s/p IR drain 10/21. - Patient Problems (1) Hypokalemia Current Visit: Yes Status: Acute Code(s): E87.6 - HYPOKALEMIA SNOMED Code( s): 07725540 Comment: Will replace with 60 MEQ of potassium. (2) Hepatic abscess Current Visit: Yes Status: Acute Code(s): K75.0 - ABSCESS OF LIVER SNOMED Code(s): 40953733 Comment: s/p US guided aspiration of liver abscess. Growing ESBL Ecoli. On admission: Fevers, leukocytosis, AMS (improved). follow up ID recs. Currently On Meropenem. s/p levaquin, cftx, flagyl. Follow blood cultures- no growth today day #3. s/p US guided drainage 1 (3) Hypernatremia Current Visit: Yes Status: Acute Code(s): E87.0 - HYPEROSMOLALITY AND HYPERNATREMIA SNOMED Code(s): 67060976 Comment: Na 146 -> 145 -> 143. Improved. continue gentle D5W, BMP daily. (4) Insulin resistance Current Visit: Yes Status: Acute Code(s): E88.81 - METABOLIC SYNDROME SNOMED Code(s): 28196478 Comment: POCT, SSI qa qhs Status and Disposition: medicine inpatient.
[2017-10-22] MEDS: D5W 1000 ML BAG* 1,000 ML IV SCH (12:31)
[2017-10-22] MEDS ORDERED: NS 0.9% 500 ML* 500 ML ONE (13:14)
[2017-10-23] MEDS: Meropenem 1 GM PREMIX(*) 1 GM/50 ML BAG IV SCH ×4 (06:07→20:46)
[2017-10-23] MEDS: Levothyroxine TAB* 25 MCG TAB PO SCH ×2 (06:08→06:14)
[2017-10-23 06:16] LABS: EGFR Non-African American 78.1 (>60)
[2017-10-23 06:52] LABS: ABS Basophils 0 10^3/ul (0-0.2); ABS Eosinophils 0.2 10^3/ul (0-0.6); ABS Lymphocytes 1.2 10^3/ul (1.0-4.8); ABS Monocytes 0.5 10^3/ul (0-0.8); ABS Neutrophils 7.9 10^3/ul (1.5-7.7); ABS Nucleated RBC 0 10^3/ul; Eosinophil % 2.3 % (0-6); Hematocrit 33 % (35-47); Hemoglobin 10.6 g/dl (12.0-16.0); Lymphocyte % 12.2 % (25-47); Mean Corpuscular HGB Conc 33 g/dl (31-36); Mean Corpuscular Hemoglobin 32 pg (27-31); Mean Corpuscular Volume 99 fL (80-97); Mean Platelet Volume 8 um3 (7.4-10.4); Nucleated Red Blood Cells % 0; Platelet Count 312 10^3/ul (150-450); Red Blood Count 3.27 10^6/ul (4.0-5.4); Red Cell Distribution Width 15 % (10.5-15); White Blood Count 9.9 10^3/ul (3.5-10.8)
[2017-10-23] MEDS: Insulin LISPRO* 1 UNITS UNIT SUBCUT SCH ×4 (08:46→20:42)
[2017-10-23] MEDS: D5W 1000 ML BAG* 1,000 ML IV SCH (09:41)
[2017-10-23] MEDS ORDERED: Morphine INJ* 2 MG/ML 1 ML SYRINGE (TWO MG - NEW SYRINGE VERSION) IV PRN (16:23)
--- NOTE | 2017-10-23 16:30 | PN ---
Subjective Date of Service: 10/23/17 Interval History: Patient not able to make her needs known. Family History: Unchanged from Admission Social History: Unchanged from Admission Past Medical History: Unchanged from Admission Objective Active Medications: Acetaminophen (Tylenol Tab*) 650 mg PO Q4H PRN PRN Reason: FEVER/PAIN Acetaminophen (Tylenol Supp*) 650 mg [place] Q6H PRN PRN Reason: FEVER Dextrose (D50w Syringe 50 Ml*) 12.5 gm IV PUSH .FOR FS < 60 - SS PRN PRN Reason: FS < 60 Heparin Sodium (Porcine) (Heparin Flush Picc/Ml/Cvc(*)) 1 - 3 ml FLUSH 0600, 1800 [facility] PRN Reason: Protocol Last Admin: 10/23/17 06:08 Dose: Not Given Meropenem (Merrem 1 Gm Premix(*)) 1 gm in 50 mls @ 100 mls/hr IV Q8H [facility] Last Admin: 10/23/17 12:38 Dose: 100 mls/hr Insulin Human Lispro (Humalog*) 0 units SUBCUT ACHS [facility] PRN Reason: Protocol Last Admin: 10/23/17 11:53 Dose: Not Given Levothyroxine Sodium (Synthroid Tab*) 25 mcg PO DAILY@0600 [facility] Last Admin: 10/23/17 06:14 Dose: Not Given Ondansetron HCl (Zofran Inj*) 4 mg IV Q4H PRN PRN Reason: NAUSEA/VOMITING Vital Signs - 8 hr 10/23/17 10/23/17 10/23/17 11:20 11:37 15:24 Temperature 98.3 F 96.9 F Pulse Rate 72 72 Respiratory 20 18 Rate Blood Pressure 135/52 138/46 (mmHg) O2 Sat by Pulse 99 93 Oximetry Oxygen Devices in Use Now: None Appearance: Alert, partly up in bed. Neutral affect. Looks comfortable. Eyes: No Scleral Icterus Extremities: No Edema, No Clubbing, Cyanosis, - Skin: No Rash or Ulcers, No Nodules or Sclerosis, - Neurological: NL Sensation - Non-verbal. Not clear if she understands speech, does not follow commands. No tremor Result Diagrams: 10/23/17 05:26 10/23/17 05:26 Additional Lab and Data: Laboratory Results - last 24 hr 10/20/17 10/21/17 10/21/17 20:40 04:24 04:24 WBC 11.9 H RBC 3.05 L Hgb 9.9 L Hct 30 L MCV 100 H MCH 32 H MCHC 33 RDW 16 H Plt Count 366 MPV 8 Neut % (Auto) 84.3 H Lymph % (Auto) 9.9 L [place] % (Auto) 4.0 Eos % (Auto) 1.5 Baso % (Auto) 0.3 Absolute Neuts (auto) 10.0 H Absolute Lymphs (auto) 1.2 Absolute Monos (auto) 0.5 Absolute Eos (auto) 0.2 Absolute Basos (auto) 0 Absolute Nucleated RBC 0.02 Nucleated RBC % 0.1 Sodium 143 Potassium 3.2 L Chloride 111 Carbon Dioxide 24 Anion Gap 8 BUN 35 H Creatinine 0.89 Est GFR ( Amer) 77.3 Est GFR (Non-Af Amer) 60.1 BUN/Creatinine Ratio 39.3 H Glucose 134 H POC Glucose (mg/dL) 164 H Calcium 8.1 L 10/21/17 10/21/17 10/21/17 07:48 12:07 16:54 WBC RBC Hgb Hct MCV MCH MCHC RDW Plt Count MPV Neut % (Auto) Lymph % (Auto) [place] % (Auto) Eos % (Auto) Baso % (Auto) Absolute Neuts (auto) Absolute Lymphs (auto) Absolute Monos (auto) Absolute Eos (auto) Absolute Basos (auto) Absolute Nucleated RBC Nucleated RBC % Sodium Potassium Chloride Carbon Dioxide Anion Gap BUN Creatinine Est GFR ( Amer) Est GFR (Non-Af Amer) BUN/Creatinine Ratio Glucose POC Glucose (mg/dL) 112 H 134 H 99 Calcium Microbiology and Other Data: Microbiology 10/18/17 15:36 Blood Venous Aerobic Blood Culture - Preliminary No Growth Day 3 10/18/17 15:36 Blood Venous Anaerobic Blood Culture - Preliminary No Growth Day 3 10/18/17 15:36 Blood Venous Aerobic Blood Culture - Preliminary No Growth Day 3 10/18/17 15:36 Blood Venous Anaerobic Blood Culture - Preliminary No Growth Day 3 10/18/17 14:00 Body Fluid - Hepatic Gram Stain - Final 10/18/17 14:00 Body Fluid - Hepatic Body Fluid Culture - Preliminary Esbl Escherichia Coli 10/18/17 02:58 Nasal Nasal Screen MRSA (PCR)(YOVANA) - Final Mrsa Negative Assess/Plan/Problems-Billing Assessment: 87 year old female (resident of [facility], non-ambulatory) PMH dementia, insulin resistance, HLD, OA presenting with FUO and AMS found to have an enlarging liver cyst suspicious for abscess. s/p IR guided aspiration growing ESBL Ecoli. Improving mental status. Meropenem. s/p IR drain 10/21. - Patient Problems (1) Hepatic abscess Current Visit: Yes Status: Acute Code(s): K75.0 - ABSCESS OF LIVER SNOMED Code(s): 25078166 Comment: s/p US guided aspiration of liver abscess. Growing ESBL Ecoli. Continue Meropenem. s/p US guided drainage 10/21, grew ESBL E. coli Drainage red-brown thick material. (2) Hypernatremia Current Visit: Yes Status: Acute Code(s): E87.0 - HYPEROSMOLALITY AND HYPERNATREMIA SNOMED Code(s): 95958267 Comment: IV fluids ordered. Only minimal to no oral intake last 3 days as of 10/23. (3) Dementia Current Visit: Yes Status: Acute Code(s): F03.90 - UNSPECIFIED DEMENTIA WITHOUT BEHAVIORAL DISTURBANCE SNOMED Code(s): 28341976 Comment: I spoke on the phone with daughter Jodie who is the HCP. We will talk in person tomorrow about end of life care. Status and Disposition: medicine inpatient.
[2017-10-23] MEDS: D5W 1/2 NS KCl 20 Meq 1000 ML* 1,000 ML IV SCH (16:31)
[2017-10-24] MEDS: Meropenem 1 GM PREMIX(*) 1 GM/50 ML BAG IV SCH ×2 (04:53→12:29)
[2017-10-24] MEDS: Levothyroxine TAB* 25 MCG TAB PO SCH (05:44)
[2017-10-24] MEDS: D5W 1/2 NS KCl 20 Meq 1000 ML* 1,000 ML IV SCH (05:52)
[2017-10-24] MEDS: Insulin LISPRO* 1 UNITS UNIT SUBCUT SCH ×2 (08:24→12:27)
[2017-10-24] MEDS ORDERED: Morphine ORAL CONCENTRATE* 5 MG/0.25 ML ORAL.SYRIN SL PRN (14:39)
[2017-10-24] MEDS ORDERED: Atropine 1% (ORAL/SL)* 15 ML BTL SL PRN (14:39)
[2017-10-24] MEDS ORDERED: LORazepam TAB(*) 0.5 MG SL PRN (14:40)
--- NOTE | 2017-10-24 14:44 | PN ---
Subjective Date of Service: 10/24/17 Interval History: Pt offers no c/o. When asked, she said she was thirsty but then refused a drink of water. Family History: Unchanged from Admission Social History: Unchanged from Admission Past Medical History: Unchanged from Admission Objective Vital Signs - 8 hr 10/24/17 10/24/17 10/24/17 07:53 08:00 08:23 Temperature 98.6 F Pulse Rate 71 Respiratory 15 16 Rate Blood Pressure 122/50 (mmHg) O2 Sat by Pulse 100 Oximetry 10/24/17 10/24/17 11:08 11:38 Temperature 97.2 F Pulse Rate 73 72 Respiratory 16 17 Rate Blood Pressure 144/52 (mmHg) O2 Sat by Pulse 100 98 Oximetry Oxygen Devices in Use Now: None Appearance: Alert, head partly up in bed. Neutral affect. Looks comfortable. Eyes: No Scleral Icterus Abdominal: NL Sounds; No Tenderness; No Distention, No Hepatosplenomegaly Extremities: No Edema, No Clubbing, Cyanosis, - Skin: No Rash or Ulcers, No Nodules or Sclerosis, - Neurological: NL Sensation - Answers some simple questions, ignores others. Passive. No tremor. Result Diagrams: 10/23/17 05:26 10/23/17 05:26 Additional Lab and Data: Laboratory Results - last 24 hr 10/20/17 10/21/17 10/21/17 20:40 04:24 04:24 WBC 11.9 H RBC 3.05 L Hgb 9.9 L Hct 30 L MCV 100 H MCH 32 H MCHC 33 RDW 16 H Plt Count 366 MPV 8 Neut % (Auto) 84.3 H Lymph % (Auto) 9.9 L [place] % (Auto) 4.0 Eos % (Auto) 1.5 Baso % (Auto) 0.3 Absolute Neuts (auto) 10.0 H Absolute Lymphs (auto) 1.2 Absolute Monos (auto) 0.5 Absolute Eos (auto) 0.2 Absolute Basos (auto) 0 Absolute Nucleated RBC 0.02 Nucleated RBC % 0.1 Sodium 143 Potassium 3.2 L Chloride 111 Carbon Dioxide 24 Anion Gap 8 BUN 35 H Creatinine 0.89 Est GFR ( Amer) 77.3 Est GFR (Non-Af Amer) 60.1 BUN/Creatinine Ratio 39.3 H Glucose 134 H POC Glucose (mg/dL) 164 H Calcium 8.1 L 10/21/17 10/21/17 10/21/17 07:48 12:07 16:54 WBC RBC Hgb Hct MCV MCH MCHC RDW Plt Count MPV Neut % (Auto) Lymph % (Auto) [place] % (Auto) Eos % (Auto) Baso % (Auto) Absolute Neuts (auto) Absolute Lymphs (auto) Absolute Monos (auto) Absolute Eos (auto) Absolute Basos (auto) Absolute Nucleated RBC Nucleated RBC % Sodium Potassium Chloride Carbon Dioxide Anion Gap BUN Creatinine Est GFR ( Amer) Est GFR (Non-Af Amer) BUN/Creatinine Ratio Glucose POC Glucose (mg/dL) 112 H 134 H 99 Calcium Microbiology and Other Data: Microbiology 10/18/17 15:36 Blood Venous Aerobic Blood Culture - Preliminary No Growth Day 3 10/18/17 15:36 Blood Venous Anaerobic Blood Culture - Preliminary No Growth Day 3 10/18/17 15:36 Blood Venous Aerobic Blood Culture - Preliminary No Growth Day 3 10/18/17 15:36 Blood Venous Anaerobic Blood Culture - Preliminary No Growth Day 3 10/18/17 14:00 Body Fluid - Hepatic Gram Stain - Final 10/18/17 14:00 Body Fluid - Hepatic Body Fluid Culture - Preliminary Esbl Escherichia Coli 10/18/17 02:58 Nasal Nasal Screen MRSA (PCR)(YOVANA) - Final Mrsa Negative Assess/Plan/Problems-Billing Assessment: 87 year old female (resident of [facility], non-ambulatory) PMH dementia, insulin resistance, HLD, OA presenting with FUO and AMS found to have an enlarging liver cyst suspicious for abscess. s/p IR guided aspiration growing ESBL Ecoli. Improving mental status. Meropenem. s/p IR drain 10/21. - Patient Problems (1) Hepatic abscess Current Visit: Yes Status: Acute Code(s): K75.0 - ABSCESS OF LIVER SNOMED Code(s): 19915803 Comment: s/p US guided aspiration of liver abscess. Growing ESBL Ecoli. Meropenem stopped as pt is comfort care 10/24. s/p US guided drainage 10/21, grew ESBL E. coli Drainage red-brown thick material. (2) Hypernatremia Current Visit: Yes Status: Acute Code(s): E87.0 - HYPEROSMOLALITY AND HYPERNATREMIA SNOMED Code(s): 43926228 Comment: Only minimal to no oral intake last 4 days as of 10/24. (3) Dementia Current Visit: Yes Status: Acute Code(s): F03.90 - UNSPECIFIED DEMENTIA WITHOUT BEHAVIORAL DISTURBANCE SNOMED Code(s): 97565922 Comment: I met with daughter Jodie 10/24. She agreed to comfort only measures and Hospice care. Status and Disposition: medicine inpatient.
[2017-10-25 07:51] VITALS: BP 149/50
--- NOTE | 2017-10-25 11:09 | PN ---
Progress Note - Progress Note Date of Service: 10/25/17 Note: Time spent on discharge 40 minutes.
--- NOTE | 2017-10-25 14:24 | TRS ---
CC: Dr. Gagan Meléndez * DATE OF ADMISSION: 10/18/2017. DATE OF DISCHARGE: 10/25/2017. HISTORY OF PRESENT ILLNESS: This 87-year-old woman was transferred from [facility] for treatment of a hepatic abscess. The patient had been on IV antibiotics at [facility] for lethargy and fevers. CT scan of the abdomen showed a fluid collection in the liver. The patient had a needle aspiration on October 18 and had a drainage by an 8 Cuban catheter on 10/21/2017. Cultures of the abscess fluid drainage grew out ESBL E. coli. She was treated with a broad spectrum antibiotic appropriate for her pathogen. However, it became evident that the patient was really in her final stages of dementia. I talked at length with the daughter, Jodie, about the patient's recent course over the past year and the prognosis and she agreed on comfort measures. The patient was averaging about 30 ml of fluid intake for the last four or five days and basically refused to take anything even though she was alert. FINAL DIAGNOSES: 1. Liver abscess. 2. Hyponatremia. 3. Dementia. DISCHARGE MEDICATIONS: 1. Atropine 1% two drops sublingual q.2 hours prn. 2. Lorazepam 0.5 mg sublingual q.4 hours prn. 3. Morphine oral concentrate 5 mg sublingual q.30 minutes prn. The patient is transferred back to the [facility] nursing [facility]. [id number]/[facility] #: [id number] MTDD
== END 2017-10-25 13:20 | DRG 442 ==
LOC: SSU 01:42
PROVIDERS: ADMIT Internal Medicine; ATTEND Internal Medicine
PROC: 0F923ZX Drainage of Left Lobe Liver, Percutaneous Approach, Diagnostic (ICD-10-PCS; principal; 2017-10-18)
PROC: 0F9230Z Drainage of Left Lobe Liver with Drainage Device, Percutaneous Approach (ICD-10-PCS; 2017-10-21)
DX: K75.0 Abscess of liver (principal); E87.0 Hyperosmolality and hypernatremia; E88.81 Metabolic syndrome and other insulin resistance; E11.9 Type 2 diabetes mellitus without complications; B96.20 Unspecified Escherichia coli [E. coli] as the cause of diseases classified elsewhere; E03.9 Hypothyroidism, unspecified; F03.90 Unspecified dementia, unspecified severity, without behavioral disturbance, psychotic disturbance, mood disturbance, and anxiety; E66.9 Obesity, unspecified; M54.89 Other dorsalgia; E78.5 Hyperlipidemia, unspecified; E87.6 Hypokalemia; M19.90 Unspecified osteoarthritis, unspecified site; F41.9 Anxiety disorder, unspecified; M54.10 Radiculopathy, site unspecified; Z87.440 Personal history of urinary (tract) infections; Z68.24 Body mass index [BMI] 24.0-24.9, adult; Z79.84 Long term (current) use of oral hypoglycemic drugs; Z79.82 Long term (current) use of aspirin; Z79.899 Other long term (current) drug therapy; Z88.0 Allergy status to penicillin; Z66 Do not resuscitate
CPT/HCPCS: 10022; 36415; 49406; 71010; 74150; 76705; 76942; 80048; 80053; 83605; 84443; 85025; 85610; 87040; 87070; 87077; 87186; 87205; 87641; 94760; A9270-GY; C1729; C1769; J0696; J1644; J1956; J2185; J2270; J3010; J3480; J3490